=== PATIENT | female | born 1955 | race Caucasian/White ===

== ENCOUNTER 2016-07-06 17:34 | Emergency (ER) | payer MEDICAID ==
[~2016-07-06] VITALS: Ht 175.3 cm; Wt 66.8 kg
[~2016-07-06 17:34] MED LIST: ALBU8.5H5 INH; BUDE10.2 INH; LEVO100T PO; PRED20TA PO; TIOT18CA INH
[2016-07-06 17:42] VITALS: BP 117/83
[2016-07-06] MEDS ORDERED: KETOROLAC 30 MG/1 ML IM ONE (18:30)
[2016-07-06] MEDS ORDERED: METHOCARBAMOL 750 MG TABLET PO ONE (18:30)
[2016-07-06] MEDS ORDERED: KETOROLAC 30 MG/1 ML ONE (18:31)
[2016-07-06] MEDS ORDERED: METHOCARBAMOL 750 MG TABLET ONE (18:31)
== END 2016-07-06 19:29 | disposition home or self-care (01) ==
LOC: ED 19:23
DX: M51.37 Other intervertebral disc degeneration, lumbosacral region (principal); Z88.6 Allergy status to analgesic agent
CPT/HCPCS: 72110; 96372; 99284; J1885

== ENCOUNTER 2020-05-12 07:30 | Emergency (ER) | payer MEDICAID ==
[~2020-05-12] VITALS: Ht 175.3 cm; Wt 66.3 kg
--- NOTE | 2020-05-12 07:49 | NUR ---
PT brought back from triage with choef complaint of sob and feeling "poor" since covid vaccine on sunday 05/07. [facility] [place] at bedside for evaluation.
[2020-05-12] MEDS ORDERED: methylPREDNISolone SOD SUCC 125 MG/2 ML ONE (08:25)
[2020-05-12 08:30] VITALS: BP 129/63
[2020-05-12] MEDS ORDERED: methylPREDNISolone SOD SUCC 125 MG/2 ML IVPush ONE (08:30)
[2020-05-12] MEDS ORDERED: SODIUM CHLORIDE 0.9%, 500ML IVBOLUS ONE (08:30)
[2020-05-12 08:40] LABS: BASOPHILS % (AUTO) 0 % (0-1); EOSINOPHILS % (AUTO) 0 % (1-7); LYMPHOCYTES % (AUTO) 12 % (22-44); MEAN CORPUSCULAR HEMOGLOBIN 27.9 pg (27.0-34.8); MEAN CORPUSCULAR HGB CONC 33.1 g/dL (32.4-35.8); MEAN PLATELET VOLUME 7.8 fL (7.4-10.4); MONOCYTES % (AUTO) 6 % (2-9); NEUTROPHILS % (AUTO) 82 % (42-75); PLATELET COUNT 110 x10^3/uL (130-400); RED BLOOD COUNT 4.66 x10^6/uL (3.82-5.3); RED CELL DISTRIBUTION WIDTH 14.9 % (9.6-15.2)
[2020-05-12 08:41] LABS: MD NO
[2020-05-12 08:48] LABS: ALANINE AMINOTRANSFERASE 66 U/L (12-78); ALBUMIN 3.3 g/dL (3.4-5.0); ANION GAP 8 mmol/L (5-15); CALCIUM 8.6 mg/dL (8.5-10.1); CHLORIDE 111 mmol/L (98-107); CREATININE 0.77 mg/dL (0.55-1.02)
[2020-05-12 08:52] LABS: D-DIMER (DIC) 0.29 ug/mlFEU (0.00-0.52); PROTIME 10.4 Seconds (9.6-11.5)
[2020-05-12 08:55] LABS: ALKALINE PHOSPHATASE 149 U/L (45-117); BILIRUBIN,TOTAL 0.1 mg/dL (0.2-1.0); TOTAL PROTEIN 6.9 g/dL (6.4-8.2)
[2020-05-12 09:09] LABS: RAPID INFLUENZA A Negative (Negative); RAPID INFLUENZA B Negative (Negative)
--- NOTE | 2020-05-12 09:28 | NUR ---
pt ambulated without assistance to bathroom.
--- NOTE | 2020-05-12 10:54 | NUR ---
DISCHARGE INSTRUCTIONS REVIEWED
== END 2020-05-12 11:05 | disposition home or self-care (01) ==
LOC: ED 08:42
DX: J44.1 Chronic obstructive pulmonary disease with (acute) exacerbation (principal); Z20.822 Contact with and (suspected) exposure to COVID-19; Z87.891 Personal history of nicotine dependence
CPT/HCPCS: 36415; 71045; 80053; 82728; 83605; 83615; 84145; 85025; 85049; 85379; 85384; 85610; 85730; 86140; 87040; 87400; 93005; 96361; 96374; 99285; J2930; J7040; U0003